=== PATIENT | male | born 1990 | race Caucasian/White ===

== ENCOUNTER 2023-04-29 06:50 | Day surgery (SDC) | payer BC ==
[2023-04-28 08:47] VITALS: BMI 33.2
[2023-04-29] MEDS ORDERED: Oxymetazoline HCl 0.05% (30 ML BOT) ONE (08:03)
[2023-04-29] MEDS ORDERED: Lidocaine 1% MPF 2 ML VIAL ONE (08:03)
[2023-04-29] MEDS ORDERED: EPINEPHrine 1 MG/ML AMP ONE (08:57)
[2023-04-29] MEDS ORDERED: Lidocaine 1% (PF) 30 ML VIAL ONE (08:57)
[2023-04-29] MEDS ORDERED: Famotidine/PF 20 mg/2ml Vial ONE (09:04)
[2023-04-29] MEDS ORDERED: Meperidine HCl/PF 25 MG/ML VIAL ONE (09:04)
[2023-04-29] MEDS ORDERED: fentaNYL 50 mcg/mL 1 mL Vial ONE ×4 (09:04→10:40)
[2023-04-29] MEDS ORDERED: PROPOFOL 200 MG/20 ML VIAL ONE (09:07)
[2023-04-29] MEDS ORDERED: Dexamethasone 20 MG/5 ML VIAL ONE (09:07)
[2023-04-29] MEDS ORDERED: Lidocaine 1% PF 5 ML VIAL ONE (09:07)
[2023-04-29] MEDS ORDERED: Ondansetron PF 4 MG/2 ML Vial ONE (09:07)
[2023-04-29] MEDS ORDERED: Hydrocodone-Acetamin 15 ML UDCUP ONE (11:20)
== END 2023-04-29 12:10 | disposition home or self-care (01) ==
LOC: SDC 06:50
PROVIDERS: ATTEND Otolaryngology Plastic Surgery within the Head & Neck
PROC: 0CBQ0ZZ Excision of Adenoids, Open Approach (ICD-10-PCS; principal; 2023-04-29)
PROC: 0CBNXZZ Excision of Uvula, External Approach (ICD-10-PCS; principal; 2023-04-29)
PROC: 09BM0ZZ Excision of Nasal Septum, Open Approach (ICD-10-PCS; principal; 2023-04-29)
PROC: 09BL0ZZ Excision of Nasal Turbinate, Open Approach (ICD-10-PCS; principal; 2023-04-29)
PROC: 0CBPXZZ Excision of Tonsils, External Approach (ICD-10-PCS; principal; 2023-04-29)
DX: J35.3 Hypertrophy of tonsils with hypertrophy of adenoids (principal); J35.01 Chronic tonsillitis; J34.2 Deviated nasal septum; J34.3 Hypertrophy of nasal turbinates; G47.33 Obstructive sleep apnea (adult) (pediatric); K13.79 Other lesions of oral mucosa
CPT/HCPCS: 88302; 88304; J0171; J1100; J2001; J2175; J2405; J2704; J3010; S0028